=== PATIENT | male | born 1970 | race Caucasian/White ===

== ENCOUNTER → 2021-10-30 | Outpatient (CLI) | payer BC ==
[~2021-10-30] MED LIST: ENAL20TA PO
[2021-10-30 09:30] LABS: HEMATOCRIT 45 % (40-54); HEMOGLOBIN 15.3 g/dL (13.3-17.7); MEAN CORPUSCULAR HEMOGLOBIN 30 pg (25-34); MEAN CORPUSCULAR HGB CONC 34 g/dL (32-36); MEAN CORPUSCULAR VOLUME 88 fL (80-99); MEAN PLATELET VOLUME 9.4 fL (9.0-12.2); PLATELET COUNT 289 10^3/uL (130-400); WHITE BLOOD COUNT 7.9 10^3/uL (4.3-11.0)
[2021-10-30 09:50] LABS: ALANINE AMINOTRANSFERASE 39 U/L (0-55); ALBUMIN 4.4 GM/DL (3.2-4.5); ALKALINE PHOSPHATASE 82 U/L (40-136); BILIRUBIN,TOTAL 0.7 MG/DL (0.1-1.0); BUN/CREATININE RATIO 16; CALCIUM 9.8 MG/DL (8.5-10.1); CARBON DIOXIDE 25 MMOL/L (21-32); CHLORIDE 102 MMOL/L (98-107); CHOLESTEROL 175 MG/DL (< 200); CREATINE KINASE 44 U/L (30-200); CREATININE SERUM 1.18 MG/DL (0.60-1.30); GFR ESTIMATED 75; GLUCOSE 113 MG/DL (70-105); HDL CHOLESTEROL 41 MG/DL (40-60); MAGNESIUM 2.2 MG/DL (1.6-2.4); POTASSIUM 4.7 MMOL/L (3.6-5.0); SODIUM 138 MMOL/L (135-145); TRIGLYCERIDES 103 MG/DL (<150); VLDL CHOLESTEROL 21 MG/DL (5-40)
--- NOTE | 2021-10-30 09:55 | Diagnostic Imaging Report ---
HISTORY:: Pain in the back and chest, dizziness COMPARISON: None TECHNIQUE: 3 views of the thoracic spine FINDINGS: Alignment of the thoracic spine appears normal. There are mild degenerative changes with small endplate osteophytes and mild disc height loss. Vertebral body heights are preserved. No acute fracture is seen. IMPRESSION: 1. Mild degenerative changes in the thoracic spine with no acute osseous abnormality seen. Dictated by: Dictated on workstation # [id number]
--- NOTE | 2021-10-30 09:55 | Diagnostic Imaging Report ---
INDICATION: Chest pain. COMPARISON: None. FINDINGS: Frontal and lateral views of the chest demonstrate clear lungs bilaterally. The heart is normal. There is no pneumothorax. The osseous structures are normal. IMPRESSION: Negative chest. Dictated by: Dictated on workstation # [id number]
== END ==
LOC: CARD 09:30
PROVIDERS: ATTEND Nurse Practitioner Family
DX: M47.814 Spondylosis without myelopathy or radiculopathy, thoracic region (principal)
CPT/HCPCS: 36415; 71046; 72072; 80053; 80061; 82550; 83735; 84443; 84484; 85027; 85379; 93005

== ENCOUNTER → 2021-11-08 | Outpatient (CLI) | payer BC ==
[~2021-11-08] VITALS: Ht 170 cm; Wt 72.0 kg
[~2021-11-08] MED LIST changes: +CATHETER FLUSH 10 ML SYR IV PRN
[2021-11-08 08:55] VITALS: BP 153/86
--- NOTE | 2021-11-08 11:25 | Cardiology Stress Test Report ---
Stress Test Report Date of Procedure/Referring: Date of Procedure: Nov 08, 2021 PCP Jose Luis De La Cruz MD Admitting Physician Indications: CP Baseline Heart Rate: 61 Baseline Blood Pressure: Blood Pressure Systolic: 153 Blood Pressure Diastolic: 86 Vital Signs Date Time Temp Pulse Resp B/P (MAP) Pulse Ox O2 Delivery O2 Flow Rate FiO2 11/08/21 08:55 74 16 153/86 (108) 98 Room Air Baseline Vital Signs Vital Signs Date Time Temp Pulse Resp B/P (MAP) Pulse Ox O2 Delivery O2 Flow Rate FiO2 11/08/21 08:55 74 16 153/86 (108) 98 Room Air Baseline EKG: Baseline EKG: NSR Summary: After explaining the procedure and details to the patient, he signed the consent and was brought to the stress nuclear laboratory. Patient exercised on standard Jarret protocol, EKG, heart rate and blood pressure were monitored continuously, resting and stress doses of radio tracer were injected, imaging was acquired and reviewed in the short axis, horizontal long axis and vertical long axis views Patient was able to exercise for a total of 11 minutes on Jarret protocol, METs 12.1 Maximum heart rate 165 Maximum blood pressure 201/88 Stress EKG, Minimal nondiagnostic changes Recovery EKG, Return to baseline TID: 0.93 SSS: 4 SDS: 2 EF: 62 Conclusion: 1. Good exercise tolerance for a total of 11 minutes on standard Jarret protocol, 12.1 METS, achieving 97% of maximal expected heart rate 2. Hypertensive response to exercise with peak blood pressure 201/88 return to baseline during recovery 3. Mild apical thinning with no significant ischemia or infarction on SPECT images 4. Normal left ventricular size, EF 62% JOSE LUIS DE LA CRUZ MD Nov 08, 2021 11:25
== END ==
LOC: CARD 07:45
PROVIDERS: ATTEND Internal Medicine Cardiovascular Disease
DX: I10 Essential (primary) hypertension (principal); I25.10 Atherosclerotic heart disease of native coronary artery without angina pectoris
CPT/HCPCS: 78452; 93017; 93306; A9502